=== PATIENT | female | born 1980 | race African-American/Black ===

== ENCOUNTER 2022-04-05 08:09 | Outpatient (CLI) | payer OTHER, SELFPAY ==
[2022-04-05 08:33] LABS: Basophils Percent Auto 0.3 % (0.2-1.2); Eosinophils Absolute Auto 0.2 K/mm3 (0-0.3); Eosinophils Percent Auto 1.9 % (0-4.4); Hemoglobin 13.6 g/dL (12.0-15.0); Immature Granulocyte Absolute 0.06 K/mm3 (0.00-0.031); Immature Granulocyte Percent A 0.5 % (0-0.5); Lymphocytes Absolute Auto 3.54 K/mm3 (0.9-3.2); Lymphocytes Percent Auto 29.6 % (18.3-44.2); Mean Corpuscular HGB Conc 32.4 g/dl (32-36); Mean Corpuscular Hemoglobin 29.8 pg (26-34); Mean Corpuscular Volume 92.1 fl (80-100); Mean Platelet Volume 11.1 fl (7.4-10.4); Neutrophils Absolute Auto 7.1 K/mm3 (1.3-6.7); Neutrophils Percent Auto 59.7 % (45.5-73.1); Platelet Count Result 342 k/mm3 (150-375); Red Blood Count 4.56 M/mm3 (4.2-5.4); Red Cell Distribution Width 13.2 % (11.5-14.5); White Blood Count 11.9 K/mm3 (4.5-10.0)
[2022-04-05 12:40] LABS: Erythrocyte Sedimentation Rate 17 mm/hr (0-20)
[2022-04-05 13:13] LABS: Alanine Aminotransferase 58 U/L (6-35); Albumin Level 4.6 g/dL (3.5-5.1); Alkaline Phosphatase 71 U/L (38-126); Anion Gap 8 mmol/L (8-16); Aspartate Amino Transferase 33 U/L (14-36); Bilirubin,Total 0.3 mg/dL (0.2-1.3); Blood Urea Nitrogen 11 mg/dL (7-17); CRP 2.1 mg/dL (<1.0); Calcium 9.3 mg/dL (8.4-10.2); Carbon Dioxide 24 mmol/L (22-30); Chloride 107 mmol/L (98-107); Estimated Glomerular Filt Rate > 60; Glucose 115 mg/dL (65-110); Potassium 4.1 mmol/L (3.4-5.0); Sodium 139 mmol/L (137-145)
== END 2022-04-05 08:10 | disposition home or self-care (01) ==
PROVIDERS: Visit Provider Internal Medicine Hematology & Oncology
DX: D72.829 Elevated white blood cell count, unspecified (principal)
CPT/HCPCS: 36415; 80053; 85025; 85652; 86140

== ENCOUNTER 2022-10-29 10:52 | Outpatient (CLI) | payer OTHER, SELFPAY ==
[2022-10-29 11:07] LABS: Basophils Percent Auto 0.3 % (0.2-1.2); Eosinophils Absolute Auto 0.3 K/mm3 (0-0.3); Eosinophils Percent Auto 2.5 % (0-4.4); Hematocrit 41.3 % (37.0-47.0); Hemoglobin 13.5 g/dL (12.0-15.0); Immature Granulocyte Absolute 0.03 K/mm3 (0.00-0.031); Immature Granulocyte Percent A 0.3 % (0-0.5); Lymphocytes Percent Auto 37.8 % (18.3-44.2); Mean Corpuscular HGB Conc 32.7 g/dl (32-36); Mean Corpuscular Hemoglobin 30.1 pg (26-34); Monocytes Absolute Auto 0.8 K/mm3 (0.1-0.6); Monocytes Percent Auto 7.1 % (2.6-8.5); Neutrophils Absolute Auto 5.5 K/mm3 (1.3-6.7); Platelet Count Result 347 k/mm3 (150-375); Red Blood Count 4.49 M/mm3 (4.2-5.4); Red Cell Distribution Width 12.7 % (11.5-14.5); White Blood Count 10.6 K/mm3 (4.5-10.0)
== END 2022-10-29 10:53 | disposition home or self-care (01) ==
PROVIDERS: Visit Provider Internal Medicine Hematology & Oncology
DX: D72.829 Elevated white blood cell count, unspecified (principal)
CPT/HCPCS: 36415; 85025

== ENCOUNTER 2024-08-05 10:07 | Emergency (ER) | payer SELFPAY ==
--- NOTE | ~2024-08-05 | XR_ITS ---
EXAMINATION: XR shoulder RT min 2V DATE: 08/05/2024 10:41 INDICATION: Right shoulder pain and limited range of motion TECHNIQUE: AP internally and externally rotated, AP oblique externally rotated and transscapular Y vi ews of the right shoulder were obtained. COMPARISON: None FINDINGS: Normal alignment. No fracture. Glenohumeral joint is normal. Acromioclavicular joint is normal. Soft tissues are unremarkable. Visualized portion of the right lung are clear. IMPRESSION: Negative right shoulder radiographs. Reviewed, dictated and finalized at location A.
[2024-08-05 10:10] VITALS: BP 157/93; PULSE 80; RESP 18; TEMP 36.6; O2SAT 100
--- NOTE | 2024-08-05 10:22 | ED.EXTPRO ---
HPI - Extremity Problem General Chief complaint: Extremity Problem,Nontraumatic Stated complaint: R shoulder pain Time Seen by Provider: 08/05/24 10:22 Patient complaining of right shoulder pain since Saturday. Patient states she was trying to lift a patient at work on Saturday multiple in her right shoulder. Patient having decreased range of motion to right shoulder. Patient denies any history of shoulder issues. GENERAL: Well-appearing, well-nourished, and in no acute distress. HEAD: Normocephalic, atraumatic. EYES: PERRLA and EOMI. ENT: Nares clear, no rhinorrhea or epistaxis. Mucous membranes moist. NECK: Supple. CHEST: Clear to auscultation. No respiratory distress. HEART: Regular rate and rhythm. No murmur heard. Normal peripheral pulses. ABDOMEN: Soft, nontender, nondistended, normal active bowel sounds. EXTREMITIES: Decreased range of motion to right shoulder, shooting pain down right deltoid. No edema. SKIN: Warm, dry, no rash. NEURO: No focal deficits. Alert and oriented x3. PSYCH: Normal mood and affect. History of Present Illness HPI Narrative: 44-year-old female presents with right shoulder pain since Saturday. Patient states she is attempting the pull a patient at work on Saturday and felt a twinge in her right shoulder. Patient states the pain has been getting worse and her range of motion has decreased. Patient denies history of shoulder issues. Patient denies any trauma. No other complaints. Onset (ago): day(s) (3) Related Data Home Medications Medication Instructions Recorded Confirmed amlodipine 10 mg tablet 10 mg PO DAILY 06/27/22 06/27/22 calcitriol 0.25 mcg capsule 0.25 mcg PO DAILY 06/27/22 06/27/22 carvedilol 25 mg tablet 25 mg PO Q12H 06/27/22 06/27/22 furosemide 40 mg tablet 40 mg PO QAM 06/27/22 06/27/22 losartan 100 mg tablet 100 mg PO DAILY 06/27/22 06/27/22 spironolactone 25 mg tablet 25 mg PO DAILY 06/27/22 06/27/22 Allergies Allergy/AdvReac Type Severity Reaction Status Date / Time methyldopa AdvReac Unknown Unknown Verified 06/27/22 09:05 Review of Systems Review of Systems: A 10 system review of systems was completed on the patient and is negative except for what is stated in the HPI. Nursing and ancillary documentation was reviewed. [facility] Past Medical History Medical History (Updated 08/05/24 @ 11:05 by J Carlos Bergman APRN) Anxiety and depression Hypertension Ovarian cyst Surgical History Surgical History Delivery by section 1997 History of gynecological procedure (10/30/18) RA right cystectomy Right adnexal mass ; adhesions, ovarian cyst History of gynecological procedure (03/18/12) Novasure endometrial ablation - menorrhagia/dysmenorrhea - History of hysteroscopy (07/17/18) Hscope D&C : Novasure ablation failed ; menometrorrhagia dysmenorrhea- Benign History of hysteroscopy (02/21/12) hysteroscopy, D&C - menorrhagia, dysmenorrhea - late proliferative/early secretory endometrium, implantation site nodule History of hysteroscopy (06/12/11) Hysteroscopy, D&C, resection vulvar mass - fibroepthelial polyp. secretory mid phase endometrium, implantation site nodule History of robot-assisted laparoscopic hysterectomy (08/14/18) RATLH Extensive Adhesiolysis ; menometrorrhagia, dysmenorrhea, Adhesions Family History Family History Mother Diabetes mellitus Hypertension Father Hypertension Social History Social History (Updated 06/27/22 @ 09:02 by JULIETA Leonard) Smoking packs per day: 0.5 Smoking cigarettes per day: 10.0 Smoking status: Never smoker Tobacco type: cigarettes Alcohol intake: never Substance use: never Substance use type: does not use Living arrangements: other Additional living arrangements comments: single Additional occupation/education comments: nurses aide Gender identity (if evelyne
[2024-08-05 11:24] VITALS: BP 148/87; PULSE 77; RESP 14; TEMP 36.7; O2SAT 100
== END 2024-08-05 11:23 | disposition home or self-care (01) ==
LOC: ANHED 11:29
PROVIDERS: Emergency Provider Nurse Practitioner Family
DX: S46.911A Strain of unspecified muscle, fascia and tendon at shoulder and upper arm level, right arm, initial encounter (principal); I10 Essential (primary) hypertension; F17.210 Nicotine dependence, cigarettes, uncomplicated; X50.0XXA Overexertion from strenuous movement or load, initial encounter; Y93.F2 Activity, caregiving, lifting
CPT/HCPCS: 73030; 99283; A4565

== ENCOUNTER 2025-08-26 08:43 | Outpatient (CLI) | payer OTHER, SELFPAY ==
--- NOTE | ~2025-08-26 | US_ITS ---
US abdomen limited Indication: fatty liver Comparison: None Technique: Parra-scale and color Doppler images were obtained. Findings: LIVER: Moderate increased echogenicity of the liver. . GALLBLADDER/BILIARY: Unremarkable.No cholelithiais, wall thickening or pericholecystic fluid. No biliary dilatation. CBD 4 mm. [place] sign negative. PANCREAS: Pancreas limited by bowel gas. Right Kidney: Right kidney was not imaged. Impression: Moderate hepatic steatosis Reviewed, dictated and finalized at location P. LLMENT MANAGEMENT DIRECTOR Impression: Moderate hepatic steatosis
[2025-08-26 10:51] LABS: Cholesterol 165 mg/dL (0-200); HDL Direct 40 mg/dL; Triglycerides 106 mg/dL (<150)
--- OUTSIDE RECORDS SUMMARY | 2025-08-26 17:24 | XMS_ITS | Encounter Summary ---
Author Organization [facility] Address [address] [place] [address] Care Team Providers Care Investigations Manager Name Role Phone Mode Oneal MD Primary Care Provider [phone] Encounter Details Date Type Department Care Team (Late st Contact Info) Description 08/25/2025 External Device Data [facility] ABSTRACTION Provider, Abstract NO ADDRESS ON FILE Social History Tobacco Use Types Packs/Day Years Used Date Smoking Tobacco: Every Day Cigarettes Smokeless Tobacco: Never Alcohol Use Standard Drinks/Week Comments Yes 0 (1 standard drink = 0.6 oz pur e alcohol) occasional Comments No Sex and Gender Information Value Date Recorded Sex Assigned at Not on file Legal Sex Female 11:30 AM CDT Gender Identity Not on file Sexual Orientation Not on file documented as of this encounter Plan of Treatment Not on file documented as of this encounter Visit Diagnoses Not on filedocumented in this encounter Care Teams Investigations Manager Relationship Specialty Start Date End Date Mode Oneal MD [address] [place] [address] PCP - General Internal Medicine 08/31/22 documented as of this encounter
--- OUTSIDE RECORDS SUMMARY | 2025-08-26 17:24 | XMS_ITS | Encounter Summary ---
Author Organization [facility] Address [address] [place] [id number] Care Team Providers Care Board Worker Name Role Phone Conner Carbajal MD Primary Care Provider Encounter Details Date Type Department Care Team (Late Contact Info) Description 08/26/2025 Abstract [facility], [address] [address] Camron Anders MA Social History Tobacco Use Types Packs/Day Years Used Date Smoking Tobacco: Every Day Cigarettes 0.5 16 Passive Smoke Exposure: Never Smokeless Tobacco: Never Alcohol Use Standard Drinks/Week Comments Never 0 (1 standard drink = 0.6 oz pur e alcohol) Comments Unknown Sex and Gender Information Value Date Recorded Sex Assigned at Not on file Legal Sex Female 5:09 PM CDT Gender Identity Not on file Sexual Orientation Not on file documented as of this encounter Plan of Treatment Upcoming Encounters Date Type Department Care Team (Late Contact Info) Description 09/08/2025 9:30 AM VICE SQUAD POLICE OFFICER Appointment [facility] [place] [address] Juan Hart MD Three [facility]. [address] [address] 11/02/2025 10:15 AM VICE SQUAD POLICE OFFICER Office Visit [facility], [address] [phone] [facility] [address] [place] [address] documented as of this encounter Procedures Procedure Name Priority Date/Time Associated Diagnosis Comments LIPID PANEL Routine 08/26/2025 documented in this encounter Results * LIPID PANEL (08/26/2025) CHOLESTEROL 165 TRIGLYCERIDES 106 HDL 40 DIRECT LDL 97 us Default History Genericprovider LABORATORY Edited Result - Final documented in this encounter Visit Diagnoses Not on filedocumented in this encounter Care Teams Board Worker Relationship Specialty Start Date End Date Conner Carbajal MD [address] [facility] [address] [place] [address] PCP - General INTERNAL MEDICINE 05/28/25 documented as of this encounter
--- OUTSIDE RECORDS SUMMARY | 2025-08-26 17:24 | XMS_ITS | Clinical Summary ---
Author Organization [facility] Address [address] [place] [address] Care Team Providers Care Equipment Operator Warehouse Name Role Phone Conner Carbajal MD Primary Care Provider Allergies Active Allergy Reactions Criticality Noted Date Comments Methyldopa Unknown High 05/21/2022 methyldopate Medications amLODIPine (NORVASC) 10 MG tablet Take 1 tablet (10 mg total) by mouth daily. Active calcitriol (ROCALTROL) 0.25 MCG capsule Take 1 capsule (0.25 mcg total) by mouth daily. 12/14/2024 Active carvedilol (COREG) 25 MG tablet Take 1 tablet (25 mg total) by mouth 2 (two) times daily. 11/12/2024 Active furosemide (LASIX) 40 MG tablet Take 1 tablet (40 mg total) by mouth daily. 11/12/2024 Active losartan (COZAAR) 100 MG tablet Take 1 tablet (100 mg total) by mouth daily. DIRECTED Active spironolactone (ALDACTONE) 25 MG tablet Take 2 tablets (50 mg total) by mouth daily. 11/10/2024 Active Active Problems Problem Noted Date Diagnosed Date Bacterial vaginosis 06/30/2025 Candidal vulvovaginitis 06/30/2025 Hirsutism 06/30/2025 Irregular periods 06/30/2025 Left lower quadrant pain 06/30/2025 Muscle strain of right shoulder 06/30/2025 Ovarian cyst 06/30/2025 Renal osteodystrophy 06/30/2025 Secondary hyperparathyroidism, not elsewhere cla ssified 06/30/2025 Stage 3a chronic kidney disease 06/30/2025 Right shoulder injury 06/30/2025 Vaginal discharge 06/30/2025 Bronchitis 05/20/2025 Cigarette smoker 05/20/2025 Low vitamin D level 05/20/2025 Pain in joint of right shoulder 08/10/2024 COVID-19 06/30/2024 Strain of muscle of right groin region Other symptoms and signs inv olving the musculoskeletal system 06/18/2023 Abnormal white blood cell (WBC) count 01/26/2023 Congestive heart failure 01/26/2023 Generalized anxiety disorder 01/26/2023 Hyperlipidemia 01/26/2023 Instability of right knee joint 01/26/2023 Obesity 01/26/2023 Fatty (change of) liver, not elsewhere classifie d 01/26/2023 Pain of left hand 11/28/2022 Pain of right hip joint 2022 Essential hypertension 03/27/2022 Elevated liver enzymes 01/29/2022 Leukocytosis 01/29/2022 Proteinuria 01/29/2022 Vitamin D deficiency 01/29/2022 Dilated cardiomyopathy 07/04/2021 Greater trochanteric bursitis of left hip 2018 Tobacco dependence syndrome 04/03/2011 Encounters Date Type Department Care Team Description 08/26/2025 Results Follow-Up [facility], [address] [place] [address] Sully Shine RN LIPID PANEL 08/26/2025 Abstract [facility], [address] [place] [address] Camron Anders MA 07/08/2025 Telephone [facility], [address] [place] [address] Mariella Hart MD Information ([facility]) 07/07/2025 Scan [facility], [address] [place] [address] Scanned, Doc Pccl 07/07/2025 Scan [facility], [address] [address] Scanned, Doc Pccl 06/30/2025 8:30 AM CDT [facility], [address] [address] Mariella Hart MD CHF (New consult) 06/30/2025 Travel 05/31/2025 Telephone [facility], [address] [address] Selina Rg RMWilberto Consult 05/28/2025 Telephone [facility] jhonathan [facility], [address] [address] Selina Rg RMWilberto Consult from Last 3 Months Family History Medical History Relation Comments Heart Attack Maternal Grandmother Stroke Maternal Grandmother Heart Attack Mother Stent Cardiac Mother Heart Attack Paternal Grandfather Heart Attack Paternal Grandmother Relation Status Comments Brother 1 Alive Brother 2 Alive Father Alive Maternal Grandfather Maternal Grandmother Mother Alive Paternal Grandfather Paternal Grandmother Sister Alive Social History Tobacco Use Types Packs/Day Years Used Date Smoking Tobacco: Every Day Cigarettes 0.5 16 Passive Smoke Exposure: Never Smokeless Tobacco: Never Tobacco Cessation:Ready to Q uit: No; Counseling Given: Yes Alcohol Use Standard Drinks/Week Comments Never 0 (1 standard drink = 0.6 oz pur e alcohol) Comments Unknown Sex and Gender Information Value Date Recorded Sex Assigned at Not on file Legal Sex Female 5:09 PM CDT Gender Identity Not on file Sexual Orientation Not on file Last Filed Vital Signs Vital Sign Reading Time Taken Comments Blood Pressure 130/70 06/30/2025 8:39 AM CDT Pulse 84 06/30/2025 8:39 AM CDT Temperature - - Respiratory Rate 18 06/30/2025 8:39 AM CDT Oxygen Saturation 98% 06/30/2025 8:39 AM CDT Inhaled Oxygen Concentration - - Weight 108.9 kg (240 lb) 06/30/2025 8:39 AM CDT Height 167.6 cm (5' 6) 06/30/2025 8:39 AM CDT Body Mass Index 38.74 06/30/2025 8:39 AM CDT Plan of Treatment Upcoming Encounters Date Type Department Care Team (Late st Contact Info) Description 09/08/2025 9:30 AM SHOT BAGGER Appointment [facility] Cardiology [address] [place] [address] Mariella Hart MD [facility] [address] [place] [address] 11/02/2025 10:15 AM SHOT BAGGER Office [facility], [address] [place] [address] Mariella Hart MD [facility] [address] [place], [place] [id number] Health Maintenance Due Date Last Done Comments Annual Physical 1985 Hepatitis C 2000 Hepatitis A Vaccines (1 of 2 - Risk 2-dose series) 2001 Hepatitis B Vaccines (1 of 3 - 19+ 3-dose series) 2001 Pneumococcal Vaccine: Pediatrics (0 to 5 Years) and At-Risk Patients (6 to 49 Years) (1 of 2 - PCV) 2001 HPV Vaccines (1 - 3-dose SCDM series) 2009 Mammogram Screening 2022 COVID-19 Vaccine (3 - season) 2025 12/05/2021, 11/14/2021 Influenza Adult (#1) 2025 09/22/2019, 11/13/2016, 10/28/2015 DTaP, Tdap and Td Vaccines (7 - Td or Tdap) 11/13/2026 11/13/2016, 07/28/1986, 04/09/1984, Additional history exists Meningococcal B Vaccine Aged Out No l onger eligible based on patient's age to complete this topic Meningococcal Vaccine Aged Out No aleksandar amos eligible based on patient's age to complete this topic RSV Immunizations Under 20 Months Aged Out No longer eligible based on patient's age to complete this topic Procedures Procedure Name Priority Date/Time Associated Diagnosis Comments LIPID PANEL Routine 08/26/2025 ECG GENERIC (SCAN ORDER) Routine 07/07/2025 ELECTROCARDIOGRAM (NON MIDMARK ACQUIRED) Routine 06/30/2025 8:55 AM CDT CHF (congestive heart failure) ([facility]) from Last 3 Months Results * LIPID PANEL (08/26/2025) CHOLESTEROL 165 TRIGLYCERIDES 106 HDL 40 DIRECT LDL 97 us Default History Genericprovider LABORATORY Edited Result - Final * ECG (07/07/2025) us Doc Pccl Scanned SCANNING Final Result [facility] * ELECTROCARDIOGRAM (06/30/2025 8:55 AM CDT) 06/30/2025 8:[address] [facility] 07/06/2025 5:52 AM CDT [facility] Test Date: 2025-06-30 Pat Name: BRITNI [place] Department: 112 Room: Gender: Female Hand Spray Operator: : 1980 Requested By: MARIELLA HART Order Number: [id number] Reading MD: Malcolm Lewis Measurements Intervals [place] Rate: 79 P: 52 ND: 207 QRS: -7 QRSD: 111 T: 26 QT: 416 QTc: 477 Interpretive Statements SINUS RHYTHM POSSIBLE LEFT ATRIAL ENLARGEMENT MODERATE INTRAVENTRICULAR CONDUCTION DELAY NONSPECIFIC T-WAVE ABNORMALITY Procedure Note Malcolm Lewis MD - 07/06/2025 [facility] Test Date: 2025-06-30 Pat Name: [facility] Department: 112 Room: Gender: Female Hand Spray Operator: : 1980 Requested By: MARIELLA HART Order Number: [id number] Reading MD: Malcolm Lewis Measurements Intervals [place] Rate: 79 P: 52 ND: 207 QRS: -7 QRSD: 111 T: 26 QT: 416 QTc: 477 Interpretive Statements SINUS RHYTHM POSSIBLE LEFT ATRIAL ENLARGEMENT MODERATE INTRAVENTRICULAR CONDUCTION DELAY NONSPECIFIC T-WAVE ABNORMALITY us Mariella Hart MD PROCEDURES-ORDERABLE NO CHARGE Final Result [facility] from Last 3 Months Insurance [employer] Care Teams Equipment Operator Warehouse Relationship Specialty Start Date End Date Conner Carbajal MD [address] [place] [address] PCP - General INTERNAL MEDICINE 05/28/25
--- OUTSIDE RECORDS SUMMARY | 2025-08-26 17:24 | XMS_ITS | Encounter Summary ---
Author Organization [facility] Address [facility] [place] [address] Care Team Providers Care Bottom Liner Name Role Phone Conner Carbajal MD Primary Care Provider Encounter Details Date Type Department Care Team (Late Contact Info) Description 08/26/2025 Results Follow-Up [facility], [address] [phone] [place] [address] LIPID PANEL Social History Tobacco Use Types Packs/Day Years [...] (Late Contact Info) Description 09/08/2025 9:30 AM EMERGENCY MEDICAL SERVICES COORDINATOR Appointment [facility] [place] [address] Juan Hart MD [facility]. [address] [id number] 11/02/2025 10:15 AM EMERGENCY MEDICAL SERVICES COORDINATOR Office Visit [facility], [address] [address] Juan Hart MD [facility] [address] [place] [address] documented as of this encounter Visit Diagnoses Not on filedocumented in this encounter Care Teams Bottom Liner Relationship Specialty Start Date End Date Conner Carbajal MD [address] [facility] [address] [place] [address] PCP - General INTERNAL MEDICINE 05/28/25 documented as of this encounter
--- OUTSIDE RECORDS SUMMARY | 2025-08-26 17:24 | XMS_ITS | Clinical Summary ---
Author Organization [facility] Medical Office Building B Address [address] [place] [address] Care Team Providers Care Boarding Kennel Or Cattery Operator Name Role Phone KeeganMary mohan YAMILEX Primary Care Provider [phone] Allergies Active Allergy Reactions Criticality Noted Date Comments Methyldopa Unknown High 05/21/2022 Medications amLODIPine (NORVASC) 10 mg tablet 06/22/2022 Active calcitRIOL (ROCALTROL) 0.25 mcg capsule 06/26/2022 Active carvediloL (COREG) 25 mg tablet 06/04/2022 Active furosemide (LASIX) 40 mg tablet 06/03/2022 Active losartan (COZAAR) 100 mg tablet 04/27/2022 Activ e spironolactone (ALDACTONE) 25 mg tablet 06/03/2022 Active Active Problems Problem Noted Date Diagnosed Date Dilated cardiomyopathy 07/04/2021 Tobacco dependence syndrome 04/03/2011 Immunizations Immunization Administration Dates Next Due DTP 07/28/1986, 4,03/27/1983,01/24,1982 Influenza, Quadrivalent, Spl it, Intramuscular 09/22/2019,11/13/2016 Influenza, Trivalent, IM (MDV) 10/28/2015 MMR 04/09/1984 OPV 05/11/1987, 4,03/27/1983,01/24,1982 Tdap 11/13/2016 Surgical History Surgery Date Site/Laterality Comments HYSTERECTOMY SECTION Medical History Medical History Date Comments Hyperlipemia Hypertension Cardiomyopathy Social History Tobacco Use Types Packs/Day Years Used Date Smoking Tobacco: Every Day Cigarettes Smokeless Tobacco: Never Tobacco Cessation:Ready to Q uit: Yes; Counseling Given: Yes Personal Safety Answer Date Recorded Getting School Help Needed Not on file 12/21 Comments Unknown Sex and Gender Information Value Date Recorded Sex Assigned at Not on file Legal Sex Female 8:43 PM JELLY FILTER TENDER Gender Identity Not on file Sexual Orientation Not on file Last Filed Vital Signs Vital Sign Reading Time Taken Comments Blood Pressure 140/91 07/12/2022 10:32 AM CDT Pulse 77 07/12/2022 10:32 AM CDT Temperature 37.1 C (98.7 F) 04/23/2015 3:58 PM CDT Respiratory Rate - - Oxygen Saturation 99% 04/23/2015 3:58 PM CDT Inhaled Oxygen Concentration - - Weight 104.8 kg (231 lb) 07/12/2022 10:32 AM CDT Height 172.7 cm (5' 8) 07/12/2022 10:32 AM CDT Body Mass Index 35.12 07/12/2022 10:32 AM CDT Plan of Treatment Not on file Insurance Care Teams Boarding Kennel Or Cattery Operator Relationship Specialty Start Date End Date Mary Thibodeaux NP PCP - General Nurse Practitioner 06/28/22
--- OUTSIDE RECORDS SUMMARY | 2025-08-26 17:24 | XMS_ITS | Patient Health Record ---
Author Organization [facility] Address [address] [facility] [address] [place] [address] Reason For Referral No Information Medications Medication SIG (Take, Route, Frequency, Duration) Notes Start Date End Date Status Ergocalciferol 1.25 MG (13613 UT) 1 capsule Orally Active Lisinopril 40 MG 1 tablet Orally Once a day Active Naproxen 500 MG 1 tablet with food o r milk as needed Orally every 12 hrs Active Losartan Potassium 100 MG TAKE 1 TABLET BY MOUTH EVERY DAY; Duration: 90 Active Calcitriol 0.25 MCG TAKE ONE CAPSULE BY MOUTH EVERY OTHER DAY; Duration: 90 Active Furosemide 40 MG 1 tablet Orally Once a day Active Carvedilol 25 MG 1 tablet with food Orally Twice a day Active Acetaminophen-Codeine 300-30 MG 1 tablet as needed Orally every 6 hrs Active amLODIPine Besylate 5 MG 1 tablet Orally Once a day Active Spironolactone 25 MG 1 tablet Orally Active Gabapentin 300 MG 1 capsule Orally Onc e a day Active Problems Problem Type SNOMED Code ICD Code Onset Dates Problem Status W/U Status Risk Notes Problem Secondary hyperparathyroidism (84643686) Secondary hyperparathyroid ism, not elsewhere classified (E21.1) Active confirmed Problem Renal osteodystrophy (63508045) Renal osteodystrophy (N25.0) Active confirmed Problem Proteinuria (09466976) Proteinuria, unspecified (R80.9) Active confirmed Problem Chronic kidney disease stage 3A (disorder) (735234397) Chronic kidney disease, stage 3a (N18.31) Active confirmed Plan Of Treatment No Information
--- OUTSIDE RECORDS SUMMARY | 2025-08-26 17:25 | XMS_ITS | Clinical Summary ---
Author Organization [facility] Diane Ross Address [address] [place] [place] [address] Care Team Providers Care Ict Support And Test Engineers Name Role Phone Mode Oneal MD Primary Care Provider [phone] Allergies Active Allergy Reactions Criticality Noted Date Comments Methyldopa Unknown High 05/21/2022 Medications amLODIPine (NORVASC) 5 mg tablet 2 Active calcitRIOL (ROCALTROL) 0.25 mcg capsule 2 Active carvediloL (COREG) 25 mg tablet 2 Active furosemide (LASIX) 40 mg tablet 2 Active losartan (COZAAR) 100 mg tablet 2 Active spironolactone (ALDACTONE) 25 mg tablet 2 Active albuterol sulfate 90 mcg/Actuation inhaler albuterol sulfate HFA 90 mcg/actuation aerosol inhaler Active ergocalciferol (VITAMIN D2) 50,000 unit capsule ergocalciferol (vitamin D2) 1,250 mcg (50,000 unit) capsule Active Active Problems Problem Noted Date Diagnosed Date Leukocytosis (leucocytosis) 03/26/2022 Encounters Date Type Department Care Team Description 08/25/2025 External Device Data [facility] ABSTRACTION Provider, Abstract 08/18/2025 External Device Data [facility] ABSTRACTION Provider, Abstract 08/18/2025 External Device Data [facility] ABSTRACTION Provider, Abstract 08/10/2025 External Device Data [facility] ABSTRACTION Provider, Abstract from Last 3 Months Family History Relation Name Status Comments Brother 1 Alive Brother 2 Alive Father Alive Mother Alive Sister Alive Son 1 Alive Son 2 Alive Social History Tobacco Use Types Packs/Day Years Used Date Smoking Tobacco: Every Day Cigarettes Smokeless Tobacco: Never Tobacco Cessation:Ready to Q uit: Not Asked; Counseling Given: Not Answered Alcohol Use Standard Drinks/Week Comments Yes 0 (1 standard drink = 0.6 oz pur e alcohol) occasional Comments No Sex and Gender Information Value Date Recorded Sex Assigned at Not on file Legal Sex Female 11:30 AM CDT Gender Identity Not on file Sexual Orientation Not on file Last Filed Vital Signs Vital Sign Reading Time Taken Comments Blood Pressure 128/90 10/29/2022 11:22 AM BRANCH OFFICE ADMINISTRATOR Pulse 77 10/29/2022 11:22 AM BRANCH OFFICE ADMINISTRATOR Temperature 36.2 C (97.2 F) 10/29/2022 11:22 AM BRANCH OFFICE ADMINISTRATOR Respiratory Rate 16 10/29/2022 11:22 AM BRANCH OFFICE ADMINISTRATOR Oxygen Saturation 100% 10/29/2022 11:22 AM BRANCH OFFICE ADMINISTRATOR Inhaled Oxygen Concentration - - Weight 106.8 kg (235 lb 8 oz) 10/29/2022 11:22 A M BRANCH OFFICE ADMINISTRATOR Height 172.7 cm (5' 8) 05/21/2022 2:44 PM CDT Body Mass Index 35.81 05/21/2022 2:44 PM CDT Plan of Treatment Health Maintenance Due Date Last Done Comments HEPATITIS B VACCINES (1 of 3 - 19+ 3-dose series) 2001 HPV VACCINES (1 - 3-dose SCD M series) 2009 BREAST CANCER SCREENING 2022 INFLUENZA VACCINE (#1) 2025 9, 11/13/2016, 10/28/2015 DTAP/TDAP/TD VACCINES (7 - T d or Tdap) 11/13/2026 11/13/2016, 07/28/1986, 04/09/1984, Additional history exists Insurance [facility] MEDICAID [employer] Care Teams Ict Support And Test Engineers Relationship Specialty [place] [address] [place] [address] [phone] PCP - General Internal Medicine 08/31/22
[2025-08-27 07:09] LABS: C-Reactive Protein, Cardiac 12.26 mg/L (0.00-3.00)
== END 2025-08-26 08:44 | disposition home or self-care (01) ==
PROVIDERS: Specialist; PCP Nurse Practitioner Family; Visit Provider Internal Medicine
DX: E78.5 Hyperlipidemia, unspecified (principal); K76.0 Fatty (change of) liver, not elsewhere classified
CPT/HCPCS: 36415; 76705; 80061; 82172; 83695; 86141